=== PATIENT | female | born 1990 | race Caucasian/White ===

== ENCOUNTER 2017-03-20 21:35 | Emergency (ER) | payer OTHER ==
[2017-03-20 21:36] VITALS: BMI 33.3
[2017-03-20 21:52] VITALS: BP 106/72; PULSE 81; RESP 20; TEMP 98.9; O2SAT 97
--- NOTE | 2017-03-20 22:42 | C.PDOC ---
History Of Present Illness 26 year old female who presents to the ER after she twisted her right foot at approximately 16:50 while at work. Patient states she missed the last step while going down the stairs and twisted her right foot. Denies weakness or numbness. Time Seen by Provider: 03/20/17 22:08 Chief Complaint (Nursing): Lower Extremity Problem/Injury History Per: Patient History/Exam Limitations: no limitations Onset/Duration Of Symptoms: Hrs Current Symptoms Are (Timing): Still Present Recent travel outside of the [place]: No - Ankle/Foot Description Of Injury: Twisted Past Medical History Reviewed: Historical Data, Nursing Documentation, Vital Signs Vital Signs: Last Vital Signs Temp 98.9 F 03/20/17 21:49 Pulse 81 03/20/17 21:49 Resp 20 03/20/17 21:49 BP 106/72 03/20/17 21:49 Pulse Ox 97 03/20/17 22:53 - Medical History PMH: No Chronic Diseases Surgical History: No Surg Hx Family History: States: Unknown Family Hx - Social History Hx Alcohol Use: Yes Hx Substance Use: No Review Of Systems Except As Marked, All Systems Reviewed And Found Negative. Musculoskeletal: Positive for: Foot Pain Physical Exam - Physical Exam Appears: Non-toxic, No Acute Distress Skin: Normal Color, Warm, Dry Head: Atraumatic, Normacephalic Eye(s): bilateral: Normal Inspection Neck: Normal ROM Chest: Symmetrical Extremity: Normal ROM, No Calf Tenderness, No Deformity, Other (Right ankle mildly tender to lateral aspect and tenderness to dorsum of lateral foot, no swelling, no ecchymosis. Normal ROM to ankle and foot. Normal DP pulse. ) Pulses: Right Dorsalis Pedis: Normal Neurological/Psych: Oriented x3, Normal Speech Gait: Unable To Assess ED Course And Treatment O2 Sat by Pulse Oximetry: 97 Medical Decision Making Medical Decision Making: Impression: Ankle and foot injury Differential diagnosis includes but not limited to: sprain, contusion, fracture , dislocation Plan: * XRay ankle and foot * Motrin was offered but the patient refused Progress: Xrays viewed by me showing no acute fracture or dislocation CP Apolonia applied adam bandage and aircast splint. Patient instructed on crutch walking. Advise rest, ice , elevation and to take analgesics for pain. Disposition Counseled Patient/Family Regarding: Diagnosis, Need For Followup, Rx Given - Disposition Referrals: Boiardo,Mekhi A III, MD [Staff Provider] - Disposition: HOME/ ROUTINE Disposition Time: 22:41 Condition: STABLE Additional Instructions: Your xray was normal, no fracture. Please apply ice to area 15 minutes three times a day. Take Naproxen as needed for pain every 8-12 hours, with food to not upset stomach. Follow up with orthopedic if pain persists over one week. Prescriptions: Naproxen [Naprosyn] 1 tab PO BID PRN #25 tab PRN Reason: Pain Instructions: Ankle Sprain (ED), Crutch Instructions (ED), How to Use an Elastic Bandage (ED) Forms: [employer] ([place]), Work Excuse - Clinical Impression Clinical Impression: Ankle sprain, Strain of foot - Scribe Statement The provider has reviewed the documentation as recorded by the Scribmarychuy Jessica All medical record entries made by the Scribe were at my direction and personally dictated by me. I have reviewed the chart and agree that the record accurately reflects my personal performance of the history, physical exam, medical decision making, and the department course for this patient. I have also personally directed, reviewed, and agree with the discharge instructions and disposition.
--- NOTE | 2017-03-21 07:09 | RAD ---
PROCEDURE: Right Ankle Radiographs. HISTORY: pain s.p trip and fall COMPARISON: Right foot x-rays performed same day FINDINGS: BONES: No fracture identified. JOINTS: No dislocation seen. Bony articulations appear maintained. Ankle mortise maintained. Talar dome intact SOFT TISSUES: Unremarkable OTHER FINDINGS: None. IMPRESSION: No fracture or dislocation identified.
--- NOTE | 2017-03-21 07:10 | RAD ---
PROCEDURE: Right Foot Radiographs. HISTORY: pain s.p injury COMPARISON: Right ankle x-rays performed same day FINDINGS: BONES: No fracture identified. An os peroneum is noted. JOINTS: No dislocation seen. Bony articulations appear maintained. SOFT TISSUES: Unremarkable OTHER FINDINGS: None. IMPRESSION: No fracture or dislocation identified.
== END 2017-03-20 23:07 | disposition home or self-care (01) ==
LOC: C.ER 21:35
DX: S93.401A Sprain of unspecified ligament of right ankle, initial encounter (principal); S96.911A Strain of unspecified muscle and tendon at ankle and foot level, right foot, initial encounter; X50.9XXA Other and unspecified overexertion or strenuous movements or postures, initial encounter; Y92.89 Other specified places as the place of occurrence of the external cause; Y99.0 Civilian activity done for income or pay